=== PATIENT | female | born 1985 ===

== ENCOUNTER 2018-02-23 10:11 | Emergency (ER) | payer OTHER ==
[2018-02-23 10:15] VITALS: BMI 30.5
[2018-02-23 10:16] VITALS: TEMP 98.8
--- NOTE | 2018-02-23 11:53 | CT ---
Date of service: 02/23/2018 PROCEDURE: CT MAXILLOFACIAL BONES WITHOUT CONTRAST HISTORY: L facial swelling x2 days COMPARISON: None available. TECHNIQUE: Contiguous axial CT images of the maxillofacial bones were obtained. Coronal and sagittal reformats were generated. Radiation dose: Total exam DLP = 730.88 mGy-cm. This CT exam was performed using one or more of the following dose reduction techniques: Automated exposure control, adjustment of the mA and/or kV according to patient size, and/or use of iterative reconstruction technique. FINDINGS: NASAL BONES: The nasal bones are intact. ORBITS: Both globes are symmetric. There is mild asymmetric left preseptal soft tissue and subcutaneous fat stranding. PARANASAL SINUSES/ MASTOIDS: Mild mucosal thickening in the maxillary sinuses and anterior ethmoid air cells. The remaining included paranasal sinuses are clear. MAXILLA: There is mild left pre maxillary soft tissue and subcutaneous fat stranding. No evidence of bony erosion. The maxillofacial osseous structures are within normal limits. MANDIBLE/ TEMPOROMANDIBULAR JOINTS: Unremarkable. SKULL BASE: Unremarkable. . TEMPORAL BONES: Middle ears and mastoid grossly unremarkable. OTHER FINDINGS: None IMPRESSION: Left preseptal orbital cellulitis and premaxillary facial cellulitis. No evidence for drainable fluid collection. Mild chronic maxillary and anterior ethmoid sinusitis.
[2018-02-23 12:50] LABS: BASO # 0.1 K/uL (0.0-0.2); BASO % 0.8 % (0.0-2.0); EOS # 0.2 K/uL (0.0-0.7); EOS % 3.9 % (0.0-4.0); HEMOGLOBIN 14.1 g/dL (12.0-16.0); LYMPH # 2.1 K/uL (1.0-4.3); LYMPH % 33.1 % (20.0-40.0); MEAN CELL VOLUME 88.2 fl (81.0-99.0); MEAN CORPUSCULAR HEMOGLOBIN 30.4 pg (27.0-31.0); MEAN CORPUSCULAR HGB CONC 34.4 g/dL (33.0-37.0); MEAN PLATELET VOLUME 7.8 fl (7.2-11.7); MONO # 0.5 K/uL (0.0-0.8); MONO % 7.9 % (0.0-10.0); NEUT # 3.4 K/uL (1.8-7.0); NEUT % 54.3 % (50.0-75.0); NRBC % 0.1 % (0.0-0.0); RBC 4.64 Mil/uL (3.80-5.20); RED CELL DISTRIBUTION WIDTH 13.3 % (11.5-14.5); WHITE BLOOD COUNT 6.4 K/uL (4.8-10.8)
[2018-02-23 13:08] LABS: ALB/GLOB RATIO 1.2 (1.0-2.1); ALBUMIN 3.9 g/dL (3.5-5.0); ALT/SGPT 33 U/L (9-52); AST/SGOT 24 U/L (14-36); BLOOD UREA NITROGEN 9 mg/dl (7-17); CALCIUM 8.8 mg/dL (8.4-10.2); GFR NON-AFRICAN AMERICAN > 60
--- NOTE | 2018-02-23 13:18 | ED PDOC ---
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 Denies dental pain or jaw pain. States had similar symptoms several months ago but self resolved. Denies eye pain, redness, change in vision or trauma to face. Also notes some pain to L shoulder/trapezius radiating to the neck. She believes could be from lifting 20-30lb boxes via work at [employer]. Past Medical History Reviewed: Historical Data, Nursing Documentation, Vital Signs Vital Signs: Last Vital Signs Temp 98.8 F 02/23/18 10:19 Pulse 73 02/23/18 10:19 Resp 17 02/23/18 10:19 BP 109/76 02/23/18 10:19 Pulse Ox 98 02/23/18 13:23 - Medical History PMH: No Chronic Diseases - Surgical History Surgical History: No Surg Hx - Family History Family History: States: Unknown Family Hx - Social History Current smoker - smoking cessation education provided: No - Home Medications Home Medications: Ambulatory Orders Medication Instructions Recorded Amoxicillin/Clavulanate [Augmentin 1 tab PO BID #14 tab 02/23/18 875 MG-125 MG] - Allergies Allergies/Adverse Reactions: Allergies Allergy/AdvReac Type Severity Reaction Status Date / Time No Known Allergies Allergy Verified 02/23/18 10:19 Review of Systems Constitutional: Negative for: Fever Eyes: Negative for: Vision Change ENT: Positive for: Other (facial swelling). Negative for: Throat Pain, Throat Swelling Cardiovascular: Negative for: Chest Pain, Palpitations Respiratory: Negative for: Shortness of Breath Gastrointestinal: Negative for: Abdominal Pain Genitourinary Female: Negative for: Dysuria, Frequency Musculoskeletal: Positive for: Neck Pain, Shoulder Pain. Negative for: Arm Pain , Back Pain, Hand Pain Skin: Negative for: Rash, Lesions, Jaundice Neurological: Negative for: Weakness, Numbness, Headache, Dizziness Psych: Negative for: Depression Physical Exam - Reviewed Nursing Documentation Reviewed: Yes Vital Signs Reviewed: Yes - Physical Exam Appears: Positive for: Well, Non-toxic, No Acute Distress Head Exam: Positive for: ATRAUMATIC, NORMAL INSPECTION, NORMOCEPHALIC Skin: Positive for: Normal Color, Warm Eye Exam: Positive for: EOMI, PERRL, Periorbital swelling, Other (conjunctiva pink). Negative for: Nystagmus, Periorbital tenderness, Conjunctival injection , Scleral icterus ENT: Positive for: Other (slight left facial swelling compared to right- periorbital area extending to upper cheek, no erythema, no induration or tenderness, good dentition no gingival erythema or drainage) Neck: Positive for: Normal, Painless ROM, Trachea Midline. Negative for: Pain On Movement Of Neck Cardiovascular/Chest: Positive for: Regular Rate, Rhythm Respiratory: Positive for: CNT, Normal Breath Sounds Pulses-Radial (L): 3+/4+ Pulses-Radial (R): 3+/4+ Gastrointestinal/Abdominal: Positive for: Soft. Negative for: Tenderness Back: Positive for: Normal Inspection Extremity: Positive for: Normal ROM, Tenderness (mild L trapezius tenderness no neck tenderness) Neurologic/Psych: Positive for: Alert, Oriented. Negative for: Motor/Sensory Deficits - Laboratory Results Result Diagrams: 02/23/18 12:38 02/23/18 12:38 - ECG O2 Sat by Pulse Oximetry: 98 - Radiology X-Ray: Read By Radiologist X-Ray Interpretation: No Acute Disease (CXR) Medical Decision Making Medical Decision Making: CT max/facial performed CXR performed given recurrent symptoms assure not rare SVC syndrome variant Accession No. 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 TECHNIQUE: Contiguous axial CT images of the maxillofacial bones were obtained. Coronal and sagittal reformats were generated. Radiation dose: Total exam DLP = 730.88 mGy-cm. This CT exam was performed using one or more of the following dose reduction techniques: Automated exposure control, adjustment of the mA and/or kV according to patient size, and/or use of iterative reconstruction technique. FINDINGS: NASAL BONES: The nasal bones are intact. ORBITS: Both globes are symmetric. There is mild asymmetric left preseptal soft tissue and subcutaneous fat stranding. PARANASAL SINUSES/ MASTOIDS: Mild mucosal thickening in the maxillary sinuses and anterior ethmoid air cells. The remaining included paranasal sinuses are clear. MAXILLA: There is mild left pre maxillary soft tissue and subcutaneous fat stranding. No evidence of bony erosion. The maxillofacial osseous structures are within normal limits MANDIBLE/ TEMPOROMANDIBULAR JOINTS: Unremarkable. SKULL BASE: Unremarkable. . TEMPORAL BONES: Middle ears and mastoid grossly unremarkable. OTHER FINDINGS: None IMPRESSION: Left preseptal orbital cellulitis and premaxillary facial cellulitis. No evidence for drainable fluid collection. Mild chronic maxillary and anterior ethmoid sinusitis. --------- Accession No. 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 TECHNIQUE: Chest PA and lateral FINDINGS: LINES AND TUBES: None. LUNG AND PLEURA: The lungs are well inflated and clear. No pleural effusion or pneumothorax. HEART AND MEDIASTINUM: The heart is not enlarged. The hilar and mediastinal contours are within normal limits. SKELETAL STRUCTURES: The bony structures are within normal limits for the patient's age. VISUALIZED UPPER ABDOMEN: Normal. OTHER FINDINGS: None. IMPRESSION: No active pulmonary disease. labs reviewed and unremarkable per my interpretation given dose unasyn and will be discharged w augmentin, followup PMD and OMFS. Disposition - Clinical Impression Clinical Impression: Preseptal cellulitis of left eye Counseled Patient/Family Regarding: Studies Performed, Diagnosis, Need For Followup, Rx Given - Disposition Referrals: [facility] [Outside] Disposition Time: 13:30 Condition: STABLE Additional Instructions: Followup with clinic and OMFS specialist if symptoms persist. Take antibiotics as directed. Return to ER for any worse or new symptoms. See dentist for checkup. Seguimiento con la clnica y el especialista OMFS si los sntomas persisten. Lead antibiticos segn lo indicado. Regrese a la nettie de emergencias por cualquier sntoma peor o nuevo. Christos al dentista para el chequeo. OMFS [place]- call for appointment if symptoms worsen: Prescriptions: Amoxicillin/Clavulanate [Augmentin 875 MG-125 MG] 1 tab PO BID #14 tab Instructions: Orbital Cellulitis (DC) Forms: [employer] (Burmese) Print Language: MALAWIAN
[2018-02-23 14:10] VITALS: BP 125/80; PULSE 75; RESP 16; O2SAT 99
== END 2018-02-23 14:10 | disposition home or self-care (01) ==
LOC: H.ER 10:11
DX: H05.012 Cellulitis of left orbit (principal); L03.211 Cellulitis of face; J32.2 Chronic ethmoidal sinusitis
CPT/HCPCS: 70486; 71046; 80053; 81025; 85025; 96365; 99283; J0295